=== PATIENT | female | born 1995 | race Caucasian/White ===

== ENCOUNTER → 2024-10-21 14:16 | Outpatient (REF) | payer BC, SELFPAY ==
[2024-10-21 15:09] LABS: Monotest Positive (Negative)
== END ==
LOC: REG 14:16
PROVIDERS: ATTENDING PHYSICIAN Physician Assistant Medical
DX: B27.90 Infectious mononucleosis, unspecified without complication (principal)
CPT/HCPCS: 36415; 86308